=== PATIENT | female | born 1965 | race African-American/Black ===

== ENCOUNTER → 2018-07-25 | Outpatient (CLI) | payer OTHER ==
[~2018-07-25] MED LIST: CHOL200024 PO; CHRO1TAB6 PO; EPIG1POW PO; ESTR0.5T PO; GLUCOSAMINE PO; LACT1TAB4 PO; LEVO125T5 PO; LEVO150T5 PO; LISI5TAB7 PO; METO10TA82 PO; OMEP-110 PO; OXYC-302 PO
== END | disposition home or self-care (01) ==
LOC: CFH 14:41
PROVIDERS: ATTEND Internal Medicine Cardiovascular Disease
DX: R00.2 Palpitations (principal); I10 Essential (primary) hypertension
CPT/HCPCS: 93306

== ENCOUNTER → 2018-10-17 | Outpatient (CLI) | payer OTHER | END | disposition home or self-care (01) | LOC: CFH 14:42 | PROVIDERS: ATTEND Genetic Counselor, MS | DX: Z12.31 Encounter for screening mammogram for malignant neoplasm of breast (principal) | CPT/HCPCS: 77063; 77067 ==

== ENCOUNTER → 2020-03-11 | Outpatient (CLI) | payer OTHER | END | disposition home or self-care (01) | LOC: CFH 07:49 | PROVIDERS: ATTEND Genetic Counselor, MS | DX: Z12.31 Encounter for screening mammogram for malignant neoplasm of breast (principal) | CPT/HCPCS: 77063; 77067 ==